=== PATIENT | male | born 1940 | race Caucasian/White ===

== ENCOUNTER 2017-09-10 14:00 | Inpatient (IN) ==
--- NOTE | 2017-09-10 14:11 | Emergency Department Note ---
Disposition Clinical Impression: Hypoxia, Cough, Elevated d-dimer Dyspnea Qualifiers: Dyspnea type: unspecified Qualified Code(s): R06.00 - Dyspnea, unspecified Disposition: Admitted As Inpatient Time of Disposition: 17:39 General Adult HPI - General Chief complaint: ED Shortness of Breath/Dyspnea Stated complaint: Cough Congestion / Diarrhea Time Seen by Provider: 09/10/17 14:10 Source: patient, EMS Mode of arrival: EMS Limitations: no limitations Nursing Notes Reviewed: Yes Vital Signs Reviewed: Yes - History of Present Illness HPI Narrative: Patient is a 77-year-old male with past medical history of dementia, COPD. He wears oxygen at night as needed. Presents today due to cough, shortness of breath. The patient denies any chest pain, nausea, vomiting, fevers, diarrhea, abdominal pain. He does admit to productive sputum. Family members are here and state that he has been requiring more oxygen than usual due to cough and shortness of breath. They deny any previous WA or stent history. Pain Scale: 0 - Related Data Home Medications Medication Instructions Recorded Confirmed Aspirin Enteric Coated [Aspirin EC] 81 mg PO DAILY 01/10/15 09/01/17 Lisinopril [Zestril] 40 mg PO BID 01/10/15 09/01/17 Potassium Chloride 8 meq PO BID 01/10/15 09/01/17 Atorvastatin [Lipitor] 20 mg PO HS 05/14/16 09/01/17 Cyanocobalamin (Vitamin B-12) 1,000 mcg SL DAILY 05/14/16 09/01/17 [Vitamin B-12] Donepezil [Aricept] 10 mg PO HS 05/14/16 09/01/17 Ergocalciferol (VITAMIN D2) 50,000 unit PO QMONTH 05/14/16 09/01/17 [Vitamin D2] Levothyroxine [Synthroid] 50 mcg PO 0630 05/14/16 09/01/17 Linagliptin [Tradjenta] 5 mg PO DAILY 05/14/16 09/01/17 Tiotropium [Spiriva] 18 mcg IH 0700 05/14/16 09/01/17 Furosemide [Lasix] 40 mg PO DAILY 07/30/16 09/01/17 Memantine HCl [Namenda Xr] 14 mg PO HS 07/30/16 09/01/17 Previous Rx's Medication Instructions Recorded D-Methorphan Hb/P-Epd HCl/Bpm 10 ml PO 3-4XD PRN #120 syrup 07/30/16 [Bromfed Dm Cough Syrup] Allergies Allergy/AdvReac Type Severity Reaction Status Date / Time No Known Allergies Allergy Verified 09/01/17 17:18 All systems ED: reviewed and negative except as stated. Constitutional: Denies: fever Cardiovascular: Denies: chest pain Respiratory: Reports: cough. Denies: dyspnea Gastrointestinal: Denies: abdominal pain, nausea, vomiting, diarrhea Genitourinary: Denies: urgency, dysuria Integumentary: Denies: rash Neurological: Denies: headache, weakness, numbness Past Medical History - Past Medical History Attestation: Yes The following information was validated with the patient. Source: patient Medical history: Reports: COPD, dementia, hypertension, thyroid disease Surgical history: Reports: appendectomy, cholecystectomy Psychiatric history: Reports: no psych history, other (His daughter does state that she has hydroxyzine prescription for him at home for anxiety she does not know the dose of it and she states she usually gives him one every evening to help him sleep) - Social History Smoking Status: Never smoker Smokeless Tobacco Status: No Alcohol use: Reports: none Drug use: Reports: none Physical Exam - General Limitations: no limitations General appearance: alert, in no apparent distress - Head Head exam: atraumatic, normocephalic, normal inspection - Eye Eye exam: Present: normal appearance, PERRL, EOMI - ENT ENT exam: normal exam, normal oropharynx, mucous membranes moist - Neck Neck exam: Present: normal inspection, full ROM, trachea midline - Chest Chest inspection: Present: normal inspection, symmetric chest wall rise - Respiratory Respiratory exam: Present: other (Wheezes and decreased aeration of bilateral lower lobes). Absent: respiratory distress, accessory muscle use - Cardiovascular Cardiovascular exam: Present: regular rate, normal rhythm, normal heart sounds - Abdominal Exam Abdominal exam: Present: soft, Non-Tender. Absent: tenderness, distention, guarding, rebound, rigidity - Extremities Exam Extremities exam: Present: normal inspection, full ROM. Absent: tenderness, pedal edema - Neurological Exam Neurological exam: Present: alert, oriented X3, CN II-XII intact. Absent: motor sensory deficit - Psychiatric Psychiatric exam: Present: normal affect, normal mood - Skin Skin exam: Present: warm, dry, intact, normal color Course Course Narrative: On presentation, patient was satting 88% on 2 L nasal cannula. He was increased to 4 L nasal cannula oxygen and was satting in the low 90s. Patient has no increased work of breathing but lung exam shows wheezing bilateral lower lobes. Currently concern for pneumonia versus COPD exacerbation. We will order EKG, chest x-ray, troponin. Patient will likely need to be admitted due to increased oxygen demand. We will give DuoNeb x 3 & Medrol. 17:34 EKG showed no acute ST changes. Troponin negative. Chest x-ray shows pulmonary edema and pneumonia. Patient was given Levaquin. Patient had been placed on BiPAP due to her worsening hypoxia and shortness of breath. ABG shows normal pH and CO2 of 46. I talked with hospitalist and admitted the patient for pneumonia, hypoxia. After admission, D-dimer came back elevated in the 1700. CTA chest ordered to assess for PE. I called and talked with hospitalist again and she states that she will follow up on this test. Chest X-Ray 09/10/17 14:20 IMPRESSION: 1. Interval development of mild interstitial pulmonary edema. 2. New hazy bibasilar airspace opacities likely reflect either atelectasis or edema, though pneumonia cannot be excluded. D/ / 09/10/2017 14:58:19 Cyrus Harris MD / ervin Interpreting Provider: Cyrus Harris MD Vital Signs Temperature 98.3 F 09/10/17 14:02 Pulse Rate 78 09/10/17 14:02 Respiratory Rate 22 09/10/17 14:02 Blood Pressure 102/63 09/10/17 14:02 O2 Sat by Pulse Oximetry 91 09/10/17 14:02 Temperature 98.3 F 09/10/17 14:20 Pulse Rate 78 09/10/17 14:20 Respiratory Rate 20 09/10/17 17:48 Blood Pressure 118/65 09/10/17 17:48 O2 Sat by Pulse Oximetry 93 09/10/17 17:09 Oxygen Delivery Oxygen Delivery Bipap Medical Decision Making - [facility] Narrative Medical decision making narrative: On presentation, patient was satting 88% on 2 L nasal cannula. He was increased to 4 L nasal cannula oxygen and was satting in the low 90s. Patient has no increased work of breathing but lung exam shows wheezing bilateral lower lobes. Currently concern for pneumonia versus COPD exacerbation. We will order EKG, chest x-ray, troponin. Patient will likely need to be admitted due to increased oxygen demand. We will give DuoNeb x 3 & Medrol. 17:34 EKG showed no acute ST changes. Troponin negative. Chest x-ray shows pulmonary edema and pneumonia. Patient was given Levaquin. Patient had been placed on BiPAP due to her worsening hypoxia and shortness of breath. ABG shows normal pH and CO2 of 46. I talked with hospitalist and admitted the patient for pneumonia, hypoxia. After admission, D-dimer came back elevated in the 1700. CTA chest ordered to assess for PE. I called and talked with hospitalist again and she states that she will follow up on this test. - Medical Records Medical records reviewed: Yes I reviewed the patient's medical records. - Lab Data Lab results reviewed: Yes I reviewed the patient's lab results. Result diagrams: 09/10/17 14:20 09/10/17 14:20 Lab Results 09/10/17 09/10/17 09/10/17 Range/Units 14:20 14:20 14:20 WBC 9.8 (4.3-11.1) K/mcL RBC 4.46 (4.19-5.50) M/mcL Hgb 13.1 (12.9-16.9) g/dL Hct 41.0 (37.5-50.1) % MCV 91.9 (83.0-100.0) fL MCH 29.4 (28.0-33.3) pg MCHC 32.0 (31.6-35.5) g/dL RDW 13.2 (11.5-14.5) % Plt Count 246 (140-400) K/mcL MPV 10.5 (9.4-12.4) fL Immature Gran % 0.7 (0-4) % Seg Neutrophils % 64.6 % Lymphocytes % 20.6 % Monocytes % 10.5 % Eosinophils % 2.9 % Basophils % 0.7 % Neutrophils # 6.4 (1.6-8.9) K/mcL Lymphocytes # 2.0 (0.6-4.6) K/mcL Monocytes # 1.0 (0.0-1.3) K/mcL Eosinophils # 0.3 (0.0-0.6) K/mcL Basophils # 0.1 (0.0-0.2) K/mcL D-Dimer (0-500) ng/mLFEU Sample Site ABG pH (7.32-7.45) pH Units ABG pCO2 (35-45) mmHg ABG pO2 (85-104) mmHg ABG HCO3 (21-27) mEq/L ABG Total CO2 (20-26) mEq/L ABG O2 Saturation (95-98) % ABG Base Excess (-2 to 3) mEq/L Domenico Test O2 Delivery Device Inspired O2 (1-15=lpm up18-314=%) Sodium 132 L (136-145) mEq/L Potassium 4.2 (3.5-5.1) mEq/L Chloride 99 (98-107) mEq/L Carbon Dioxide 25 (23-29) mEq/L BUN 25 H (8-23) mg/dL Creatinine 1.28 (0.70-1.30) mg/dL Est GFR ( Amer) > 60 (> 60) Est GFR (Non-Af Amer) 54 L (> 60) BUN/Creatinine Ratio 20 (6-26) Glucose 133 H (70-105) mg/dL Calculated Osmolality 280 (280-300) Lactic Acid (0.5-2.2) mmol/L Calcium 8.8 (8.6-10.3) mg/dL Troponin I 0.03 (< 0.04) ng/mL B-Natriuretic Peptide 43 (Less than 100) pg/mL 09/10/17 09/10/17 09/10/17 Range/Units 15:28 16:11 17:16 WBC (4.3-11.1) K/mcL RBC (4.19-5.50) M/mcL Hgb (12.9-16.9) g/dL Hct (37.5-50.1) % MCV (83.0-100.0) fL MCH (28.0-33.3) pg MCHC (31.6-35.5) g/dL RDW (11.5-14.5) % Plt Count (140-400) K/mcL MPV (9.4-12.4) fL Immature Gran % (0-4) % Seg Neutrophils % % Lymphocytes % % Monocytes % % Eosinophils % % Basophils % % Neutrophils # (1.6-8.9) K/mcL Lymphocytes # (0.6-4.6) K/mcL Monocytes # (0.0-1.3) K/mcL Eosinophils # (0.0-0.6) K/mcL Basophils # (0.0-0.2) K/mcL D-Dimer 1744 H (0-500) ng/mLFEU Sample Site L Radial ABG pH 7.42 (7.32-7.45) pH Units ABG pCO2 46 H (35-45) mmHg ABG pO2 78 L (85-104) mmHg ABG HCO3 29 H (21-27) mEq/L ABG Total CO2 31 H (20-26) mEq/L ABG O2 Saturation 96 (95-98) % ABG Base Excess 4 H (-2 to 3) mEq/L Domenico Test N/A O2 Delivery Device BiPAP Inspired O2 36.0 (1-15=lpm ij23-547=%) Sodium (136-145) mEq/L Potassium (3.5-5.1) mEq/L Chloride (98-107) mEq/L Carbon Dioxide (23-29) mEq/L BUN (8-23) mg/dL Creatinine (0.70-1.30) mg/dL Est GFR ( Amer) (> 60) Est GFR (Non-Af Amer) (> 60) BUN/Creatinine Ratio (6-26) Glucose (70-105) mg/dL Calculated Osmolality (280-300) Lactic Acid 1.4 (0.5-2.2) mmol/L Calcium (8.6-10.3) mg/dL Troponin I (< 0.04) ng/mL B-Natriuretic Peptide (Less than 100) pg/mL - Radiology Data Radiology results reviewed: Yes I reviewed the patient's radiology results. - EKG Data EKG #1 EKG attestation: Yes I reviewed and interpreted this EKG. EKG results narrative: 09/10/2017 at 14:18. Normal sinus rhythm. Rate 77. AK within normal limits. QRS 94. QTC 424. Left axis deviation. No acute ST elevation or depression. S.B.A.R. - S.B.A.R. Situation: Demographics, MOA Background: Presenting Complaint, Relevant PMH, Meds, & Allergies Assessment: Vital Signs, Course and respsone to treatment, Exam Concerns, Patient/Family Expectation, Pertinant Lab Results Recommendation: Barrier(s) to disposition, Recommendation based on pending studies, treatments, or consults S.B.A.R. Report Given to: Dr. Layne, pending CTA that hospitalist will f/u on Attestation Statement - Attestation Attestation: I, Damian Huddleston, examined this patient and my medical decision-making was reviewed with the VETERIN[employer]K SPECIALIST/PA/Advanced Practice Nurse/Resident Physician. I agree with the documented findings, disposition and treatment plan as described except to the extent set forth below. 77-year-old male presents emergency Department with concerns of increased shortness of breath. Family denies recent fevers however they state he has been increasingly weak and fatigued over the past few days. On initial evaluation the patient was hypoxic. The resident, Dr. Olmstead, tried started patient on BiPAP however the patient refuses at that time. In order to keep his sats above 90 we put him on a Ventimask. On reevaluation the patient had become increasingly weak and fatigued. I was concerned about possible early hypercarbia and the patient then agreed to wear BiPAP to support his O2 saturation. Patient has a possible pneumonia on chest x-ray. He started on antibiotics in the emergency department. Patient denies chest pain, had a positive d-dimer and CTA is pending at this time. Patient will be admitted to the hospitalist for further care and evaluation.
[2017-09-10] MEDS ORDERED: Ipratropium/Albuterol Neb 3 ML IH ONE (14:21)
[2017-09-10] MEDS ORDERED: methylPREDNISolone 125 MG/2 ML VIAL IVP ONE (14:21)
[2017-09-10 15:49] LABS: Basophils # 0.1 K/mcL (0.0-0.2); Basophils % 0.7 %; Eosinophils # 0.3 K/mcL (0.0-0.6); Eosinophils % 2.9 %; Hemoglobin 13.1 g/dL (12.9-16.9); Immature Granulocytes % 0.7 % (0-4); Lymphocytes % 20.6 %; Mean Corpuscular Hemoglobin 29.4 pg (28.0-33.3); Mean Corpuscular Volume 91.9 fL (83.0-100.0); Mean Platelet Volume 10.5 fL (9.4-12.4); Monocytes % 10.5 %; Neutrophils # 6.4 K/mcL (1.6-8.9); Platelet Count 246 K/mcL (140-400); Red Blood Count 4.46 M/mcL (4.19-5.50); Red Cell Distribution Width 13.2 % (11.5-14.5); Segmented Neutrophils % 64.6 %
[2017-09-10] MEDS ORDERED: Levofloxacin 750 MG/150 ML 750 MG/150 ML BAG IVPB ONE (16:03)
[2017-09-10 16:11] LABS: BUN/Creatinine Ratio 20 (6-26); Blood Urea Nitrogen 25 mg/dL (8-23); Calcium 8.8 mg/dL (8.6-10.3); Carbon Dioxide 25 mEq/L (23-29); Chloride 99 mEq/L (98-107); Glucose 133 mg/dL (70-105); Osmolality,Calculated 280 (280-300); Potassium 4.2 mEq/L (3.5-5.1); Sodium 132 mEq/L (136-145); eGFR For African Americans > 60 (> 60); eGFR For Non-African Americans 54 (> 60)
[2017-09-10 16:29] LABS: Troponin I 0.03 ng/mL (< 0.04)
[2017-09-10] MEDS ORDERED: *HR* LORazepam 2 MG/ML VIAL IVP ONE (16:45)
[2017-09-10 17:25] LABS: ABG Base Excess 4 mEq/L (-2 to 3); ABG HCO3 29 mEq/L (21-27); ABG Oxygen Saturation 96 % (95-98); ABG PCO2 46 mmHg (35-45); ABG PH 7.42 pH Units (7.32-7.45); ABG PO2 78 mmHg (85-104); ABG TCO2 31 mEq/L (20-26)
--- NOTE | 2017-09-10 17:53 | Internal Med History&Physical ---
Date of Encounter: 09/10/17 Time of Encounter: 17:49 Internal Medicine - H&P: HPI Chief complaint: SOB Admitted From: Home Plans for Post Hospital Care: Home History of present illness: Mr. Valera is a 77 year old male who has history of dementia morbid obesity diabetes hypertension hyperlipidemia heart aneurysm hypothyroidism present to emergency room for 2 days of shortness of breasts and the cough. Patient lives with her daughter at home and wears 2 L nasal cannula at night and as needed. He developed a dry cough 2 days ago increased shortness of breath over last 2- 3 days. In the emergency room chest x-ray shows chest congestion and a possible pneumonia. he was hypoxic requiring 4 L nasal cannula and the BiPAP. I discussed the code status with her daughter she wants to be full code. D- dimer is elevated 1744, pending CT angio. Patient is going to be admitted for acute on chronic respiratory failure, pneumonia possible COPD exacerbation , pulmonary edema. will conitnue llevaquin, BIPAP, will start iV lasix Past Med Surg Social Fam HX - Past Medical History Medical history: COPD, dementia, hypertension, thyroid disease Psychiatric history: no psych history, other (His daughter does state that she has hydroxyzine prescription for him at home for anxiety she does not know the dose of it and she states she usually gives him one every evening to help him sleep) - Past Surgical History Surgical History: appendectomy, cholecystectomy - Social History Smoking Status: Never smoker Smokeless Tobacco Status: No Alcohol use: none Drug use: none Internal Medicine - H&P: Meds Aspirin Enteric Coated [Aspirin EC] 81 mg PO DAILY 01/10/15 [History] Lisinopril [Zestril] 40 mg PO BID 01/10/15 [History] Potassium Chloride 8 meq PO BID 01/10/15 [History] Atorvastatin [Lipitor] 20 mg PO HS 05/14/16 [History] Cyanocobalamin (Vitamin B-12) [Vitamin B-12] 1,000 mcg SL DAILY 05/14/16 [ History] Donepezil [Aricept] 10 mg PO HS 05/14/16 [History] Ergocalciferol (VITAMIN D2) [Vitamin D2] 50,000 unit PO QMONTH 05/14/16 [History ] Levothyroxine [Synthroid] 50 mcg PO 0630 05/14/16 [History] Linagliptin [Tradjenta] 5 mg PO DAILY 05/14/16 [History] Tiotropium [Spiriva] 18 mcg IH 0700 05/14/16 [History] D-Methorphan Hb/P-Epd HCl/Bpm [Bromfed Dm Cough Syrup] 10 ml PO 3-4XD PRN #120 syrup 07/30/16 [Rx] Furosemide [Lasix] 40 mg PO DAILY 07/30/16 [History] Memantine HCl [Namenda Xr] 14 mg PO HS 07/30/16 [History] 3 Allergy/AdvReac Type Severity Reaction Status Date / Time No Known Allergies Allergy Verified 09/01/17 17:18 ROS unobtainable: due to mental status All Systems PM: A 10-system review of systems was performed and is negative for pertinent findings except as documented above in the HPI. reviewed with his daughter - Constitutional Vitals: Temp Pulse Resp BP Pulse Ox 98.3 F 78 24 134/81 93 09/10/17 14:20 09/10/17 14:20 09/10/17 17:09 09/10/17 17:09 09/10/17 17:09 General appearance: Present: A&O X 1 Exam: CONSTITUTIONAL: Patient appears as an age appropriate male well developed, in no acute distress. EYES Clear sclerae, bilateral pupils are equal, reactive to light and accommodation. Extraocular movements are intact RESPIRATORY: No accessory muscle use, bilateral clear to auscultation, no wheezing, no crackles/rales. CARDIOVASCULAR: Regular heart rate, normal S1 and S2, no murmurs GASTROINTESTINAL: bowel sounds present, soft, no tenderness. No hepatosplenomegaly. No bilateral CVA tenderness MUSCULOSKELETAL: Joints in normal range of motion, no clubbing, no edema, no cyanosis. Bilateral peripheral pulses 2+ LYMPHATIC no lymphadenopathy in neck, groin and axilla bilaterally, no thyromegaly. NEUROLOGIC: CN II to XII are grossly intact, no focal neurological deficit. Deep tendon reflexes 2+ bilaterally. Normal light touch sensation to upper and lower extremity PSYCHIATRIC: Oriented x1, with good insight, mood is euthymic. No hallucinations or delusions. SKIN: Skin warm and dry, no rashes, no open wound. Internal Med - H&P Results - Labs CBC & Chem 7: 05/28/18 14:20 09/10/17 14:20 - ABG Interpretation ABG results: 09/10/17 17:16 ABG pH 7.42 ABG pCO2 46 H ABG pO2 78 L ABG HCO3 29 H ABG Total CO2 31 H ABG O2 Saturation 96 ABG Base Excess 4 H - Assessment and plan (1) Respiratory failure with hypoxia Current Visit: Yes Status: Acute Assessment and plan: Acute on chronic hypoxic respiratory failure from pneumonia pulmonary edema. We will continue BiPAP IV Lasix antibiotics Qualifiers: Chronicity: acute on chronic Qualified Code(s): J96.21 - Acute and chronic respiratory failure with hypoxia (2) Pneumonia Current Visit: Yes Status: Acute Assessment and plan: Patient is from home will continue Levaquin, check urine legionella and strep Qualifiers: Pneumonia type: due to unspecified organism Laterality: bilateral Lung location: unspecified part of lung Qualified Code(s): J18.9 - Pneumonia, unspecified organism (3) Morbid obesity Current Visit: Yes Status: Chronic Assessment and plan: orbid: Obese, possible sleep apnea (4) Diabetes mellitus Current Visit: Yes Status: Acute Assessment and plan: on insulin sliding scale Qualifiers: Diabetes mellitus type: type 2 Diabetes mellitus half-way insulin use: without vermin exterminator use Diabetes mellitus complication status: without complication Qualified Code(s): E11.9 - Type 2 diabetes mellitus without complications (5) Dementia Current Visit: Yes Status: Chronic Qualifiers: Dementia type: unspecified type Dementia behavioral disturbance: without behavioral disturbance Qualified Code(s): F03.90 - Unspecified dementia without behavioral disturbance (6) Elevated d-dimer Current Visit: Yes Status: Acute Assessment and plan: Pain the CT angio of chest - Time Spent With Patient Total time spent is greater than 50% in coordination of care (as documented) at patient's floor/unit and/or counseling patient: Greater than 35 minutes
[2017-09-10] MEDS ORDERED: *HR* Dextrose 50 % in Water (Syg) 50 ML SYRINGE IVP PRN (18:00)
[2017-09-10] MEDS ORDERED: Dextrose Gel 15 GM/37.5 ML TUBE PO PRN ×2 (18:00)
[2017-09-10] MEDS ORDERED: D5% in Water 1,000 ML IVC PRN (18:00)
[2017-09-10] MEDS ORDERED: Naloxone 0.4 MG/ML INJ IVP PRN (18:01)
[2017-09-10] MEDS: Furosemide 40 MG/4 ML VIAL IVP SCH (22:13)
[2017-09-11 00:49] LABS: Basophils % 0.1 %; Eosinophils % 0.1 %; Hematocrit 40.6 % (37.5-50.1); Hemoglobin 13.5 g/dL (12.9-16.9); Immature Granulocytes % 0.8 % (0-4); Lymphocytes # 0.6 K/mcL (0.6-4.6); Lymphocytes % 6.1 %; Mean Corpuscular HGB Conc 33.3 g/dL (31.6-35.5); Mean Corpuscular Hemoglobin 30.5 pg (28.0-33.3); Mean Corpuscular Volume 91.6 fL (83.0-100.0); Mean Platelet Volume 10.4 fL (9.4-12.4); Monocytes # 0.1 K/mcL (0.0-1.3); Monocytes % 0.9 %; Platelet Count 243 K/mcL (140-400); Red Blood Count 4.43 M/mcL (4.19-5.50); Red Cell Distribution Width 12.9 % (11.5-14.5)
[2017-09-11] MEDS: Insulin LISPRO 300 UNITS/3 ML VIAL SQ SCH ×5 (01:14→19:54)
[2017-09-11] MEDS: Lisinopril 20 MG TABLET PO SCH ×2 (01:15→09:51)
[2017-09-11] MEDS: *HR* Heparin 5,000 UNIT/ML VIAL SQ SCH ×2 (05:26→17:03)
[2017-09-11 06:57] LABS: Troponin I < 0.03 ng/mL (< 0.04)
[2017-09-11] MEDS ORDERED: Tiotropium 18 MCG inhalation IH SCH (07:00)
[2017-09-11] MEDS ORDERED: Ipratropium/Albuterol Neb 3 ML IH PRN (07:42)
[2017-09-11 08:06] LABS: BUN/Creatinine Ratio 24 (6-26); Blood Urea Nitrogen 30 mg/dL (8-23); Calcium 8.6 mg/dL (8.6-10.3); Carbon Dioxide 25 mEq/L (23-29); Chloride 99 mEq/L (98-107); Glucose 184 mg/dL (70-105); Osmolality,Calculated 289 (280-300); Sodium 134 mEq/L (136-145); eGFR For African Americans > 60 (> 60); eGFR For Non-African Americans 56 (> 60)
[2017-09-11 08:10] LABS: Estimated Average Glucose 177 mg/dl; Hemoglobin A1C 7.8 %
[2017-09-11] MEDS: Aspirin Enteric Coated 81 MG Tablet PO SCH (09:51)
[2017-09-11] MEDS: Levofloxacin 750 MG/150 ML 750 MG/150 ML BAG IVPB SCH (09:54)
[2017-09-11] MEDS: Furosemide 40 MG/4 ML VIAL IVP SCH (09:54)
[2017-09-11] MEDS ORDERED: Albuterol 2.5 MG/3 ML NEBULIZER IH PRN (16:12)
--- NOTE | 2017-09-11 16:19 | Internal Med Progress Note ---
Date of Encounter: 09/11/17 Time of Encounter: 16:17 - Assessment and plan (1) Respiratory failure with hypoxia Current Visit: Yes Status: Acute Assessment and plan: RT consulted. Will try to wean off BiPAP today. Continue supplemental oxygen. Start duonebs scheduled Q6H and albuterol nebs Q4H PRN SOB. Start mucinex and claritin. Start mucomyst inhaled Q6H and chest PT Q6H. Turn, cough, deep breath. Up to chair and ambulate TID with assistance. Continue incentive spirometer. Continue levaquin for pneumonia as per below. Continue lasix for pulmonary edema as per below. Monitor closely. Repeat labwork in AM. Qualifiers: Chronicity: acute on chronic Qualified Code(s): J96.21 - Acute and chronic respiratory failure with hypoxia (2) Pneumonia Current Visit: Yes Status: Acute Assessment and plan: Continue levaquin. Respiratory support as per above. Qualifiers: Pneumonia type: due to unspecified organism Laterality: bilateral Lung location: unspecified part of lung Qualified Code(s): J18.9 - Pneumonia, unspecified organism (3) Pulmonary edema Current Visit: Yes Status: Acute Assessment and plan: Continue lasix. Respiratory support as per above. Qualifiers: Chronicity: acute Qualified Code(s): J81.0 - Acute pulmonary edema (4) COPD (chronic obstructive pulmonary disease) Current Visit: Yes Status: Chronic Assessment and plan: Respiratory support as per above. Nebulizer treatments added today. No need for steroids as not in acute exacerbation; respiratory failure likely secondary to pneumonia and pulmonary edema. Qualifiers: COPD type: unspecified COPD Qualified Code(s): J44.9 - Chronic obstructive pulmonary disease, unspecified (5) Diabetes mellitus Current Visit: Yes Status: Chronic Assessment and plan: Continue accuchecks and SSI QID AC/HS. Start diabetic/cardiac diet after off BiPAP. Qualifiers: Diabetes mellitus type: type 2 Diabetes mellitus prison insulin use: without prison use Diabetes mellitus complication status: without complication Qualified Code(s): E11.9 - Type 2 diabetes mellitus without complications (6) Dementia Current Visit: Yes Status: Chronic Assessment and plan: Continue home medications. Qualifiers: Dementia type: unspecified type Dementia behavioral disturbance: without behavioral disturbance Qualified Code(s): F03.90 - Unspecified dementia without behavioral disturbance (7) Morbid obesity Current Visit: Yes Status: Chronic Assessment and plan: Counselled on lifestyle modifications. (8) DVT prophylaxis Current Visit: Yes Status: Acute Assessment and plan: Continue SQ heparin. - Time Spent With Patient Total time spent is greater than 50% in coordination of care (as documented) at patient's floor/unit and/or counseling patient: - Subjective Interval history: Patient had no acute events overnight. Nursing staff reports patient sleeping most of day on BiPAP. Patient is awake in room when I saw him. He is wearing BiPAP. He is conversing appropriately. He wants to know when he will go home. He wants to eat. Will get RT to try to wean him of BiPAP and get him diet. He denies fever, chills, chest pain, SOB, nausea, or vomiting. He has no complaints at this time. - Constitutional Vitals: Temp Pulse Resp BP Pulse Ox 98.3 F 74 14 127/65 93 09/11/17 16:07 09/11/17 16:07 09/11/17 16:07 09/11/17 16:07 09/11/17 16:07 General appearance: Present: cooperative, A&O X 2, morbidly obese, pleasant, no acute distress, answers questions appropriately - Respiratory Respiratory exam: Absent: accessory muscle use, rales, rhonchi, wheezes Additional comments: Coarse breath sounds bilaterally, mildly labored WOB - Cardiovascular Cardiovascular exam: Present: RRR, +S1, +S2. Absent: diastolic murmur, gallop, rubs, systolic murmur Additional comments: No BLE edema - GI/Abdominal GI/Abdominal exam: Present: normal bowel sounds, soft. Absent: distended, hepatomegaly, mass, splenomegaly, tenderness - Psychiatric Psychiatric exam: Present: normal affect, normal mood. Absent: agitated, anxious, depressed - Skin Skin exam: Present: dry, intact, warm. Absent: cyanosis, rash Internal Medicine: Result - Labs CBC & Chem 7: 09/11/17 00:39 09/11/17 06:08 Labs: Short CBC 09/11/17 Range/Units 00:39 WBC 9.8 (4.3-11.1) K/mcL Hgb 13.5 (12.9-16.9) g/dL Hct 40.6 (37.5-50.1) % Plt Count 243 (140-400) K/mcL Neutrophils # 9.0 H (1.6-8.9) K/mcL BMP 09/11/17 06:08 Sodium 134 L Potassium 5.0 Chloride 99 Carbon Dioxide 25 BUN 30 H Creatinine 1.25 Glucose 184 H Calcium 8.6 Cardiac Enzymes 09/10/17 09/11/17 09/11/17 Range/Units 18:33 00:39 06:08 Troponin I < 0.03 < 0.03 < 0.03 (< 0.04) ng/mL - ABG Interpretation ABG results: ABG ABG pH 7.42 pH Units (7.32-7.45) 09/10/17 17:16 ABG pCO2 46 mmHg (35-45) H 09/10/17 17:16 ABG pO2 78 mmHg (85-104) L 09/10/17 17:16 ABG O2 Saturation 96 % (95-98) 09/10/17 17:16 PT/INR, D-dimer D-Dimer 1744 ng/mLFEU (0-500) H 09/10/17 16:11 Consult Discharge Plan - Plan Referrals: Pranav Abdullahi, REHABILITATION INSPECTOR [Primary Care Provider] - (Family will have to call and make patients appointment per Dr. Garcia Office)
[2017-09-11] MEDS: Loratadine 10 MG TABLET PO SCH (17:01)
[2017-09-11] MEDS: Ipratropium/Albuterol Neb 3 ML IH SCH ×2 (20:04→22:30)
[2017-09-11] MEDS ORDERED: hydrOXYzine pamoate 25 MG CAPSULE PO ONE (22:27)
[2017-09-11] MEDS: Acetylcysteine 10% 2 ML INHSOL IH SCH (22:30)
[2017-09-12] MEDS: Ipratropium/Albuterol Neb 3 ML IH SCH ×4 (04:28→22:08)
[2017-09-12] MEDS: Acetylcysteine 10% 2 ML INHSOL IH SCH ×4 (04:28→22:08)
[2017-09-12 05:45] LABS: Basophils % 0.7 %; Eosinophils % 1.3 %; Hematocrit 40.3 % (37.5-50.1); Hemoglobin 12.9 g/dL (12.9-16.9); Immature Granulocytes % 1.3 % (0-4); Lymphocytes % 18.4 %; Mean Corpuscular Hemoglobin 29.1 pg (28.0-33.3); Mean Platelet Volume 10.3 fL (9.4-12.4); Monocytes % 7.3 %; Platelet Count 245 K/mcL (140-400); Red Blood Count 4.43 M/mcL (4.19-5.50)
[2017-09-12 05:46] LABS: Basophils # 0.1 K/mcL (0.0-0.2); Eosinophils # 0.1 K/mcL (0.0-0.6); Lymphocytes # 1.8 K/mcL (0.6-4.6); Monocytes # 0.7 K/mcL (0.0-1.3); Neutrophils # 6.8 K/mcL (1.6-8.9)
[2017-09-12] MEDS: *HR* Heparin 5,000 UNIT/ML VIAL SQ SCH ×2 (05:46→17:18)
[2017-09-12 06:03] LABS: BUN/Creatinine Ratio 27 (6-26); Blood Urea Nitrogen 33 mg/dL (8-23); Calcium 8.6 mg/dL (8.6-10.3); Carbon Dioxide 28 mEq/L (23-29); Chloride 102 mEq/L (98-107); Glucose 141 mg/dL (70-105); Osmolality,Calculated 296 (280-300); Sodium 138 mEq/L (136-145); eGFR For African Americans > 60 (> 60); eGFR For Non-African Americans 57 (> 60)
[2017-09-12] MEDS: Insulin LISPRO 300 UNITS/3 ML VIAL SQ SCH ×4 (07:27→21:12)
--- NOTE | 2017-09-12 07:53 | Electrocardiograph Report ---
[place] [id number] Test Date: 2017-09-10 Pat Name: Brodie Valera Department: 103 Room: 2N02 Gender: M [employer]: NEMO : 1940 Requested By: Alen Olmstead Order Number: [id number] Reading MD: Frandy Gaines Measurements Intervals [place] Rate: 77 P: TN: 0 QRS: -44 QRSD: 94 T: 58 QT: 392 QTc: 424 Interpretive Statements SINUS RHYTHM WITH A FIRST DEGREE AV BLOCK MARKED LEFT AXIS DEVIATION LOW QRS VOLTAGE IN PRECORDIAL LEADS NONSPECIFIC T-WAVE ABNORMALITY Electronically Signed On 09-12-2017 7:51:44 EDT by Frandy Gaines
[2017-09-12] MEDS: Aspirin Enteric Coated 81 MG Tablet PO SCH (08:42)
[2017-09-12] MEDS: Loratadine 10 MG TABLET PO SCH (08:42)
[2017-09-12] MEDS: Furosemide 40 MG/4 ML VIAL IVP SCH (08:42)
[2017-09-12] MEDS: Levofloxacin 750 MG/150 ML 750 MG/150 ML BAG IVPB SCH (08:42)
--- NOTE | 2017-09-12 16:49 | Internal Med Progress Note ---
Date of Encounter: 09/12/17 Time of Encounter: 16:46 - Assessment and plan (1) Respiratory failure with hypoxia Current Visit: Yes Status: Acute Assessment and plan: Improving. RT consulted. Now on 5L NC. Continue to wean supplemental oxygen to home 2L NC. Continue duonebs scheduled Q6H and albuterol nebs Q4H PRN SOB. Continue mucinex and claritin. Continue mucomyst inhaled Q6H and chest PT Q6H. Turn, cough, deep breath. Up to chair and ambulate TID with assistance. Continue incentive spirometer. Continue levaquin for pneumonia as per below. Continue lasix for pulmonary edema as per below. Monitor closely. Repeat labwork in AM. Qualifiers: Chronicity: acute on chronic Qualified Code(s): J96.21 - Acute and chronic respiratory failure with hypoxia (2) Pneumonia Current Visit: Yes Status: Acute Assessment and plan: Continue levaquin. Respiratory support as per above. Qualifiers: Pneumonia type: due to unspecified organism Laterality: bilateral Lung location: unspecified part of lung Qualified Code(s): J18.9 - Pneumonia, unspecified organism (3) Pulmonary edema Current Visit: Yes Status: Acute Assessment and plan: Continue lasix. Respiratory support as per above. Qualifiers: Chronicity: acute Qualified Code(s): J81.0 - Acute pulmonary edema (4) COPD (chronic obstructive pulmonary disease) Current Visit: Yes Status: Chronic Assessment and plan: Respiratory support as per above. Continue nebulizer treatments. No need for steroids as not in acute exacerbation; respiratory failure likely secondary to pneumonia and pulmonary edema. Qualifiers: COPD type: unspecified COPD Qualified Code(s): J44.9 - Chronic obstructive pulmonary disease, unspecified (5) Diabetes mellitus Current Visit: Yes Status: Chronic Assessment and plan: Continue accuchecks and SSI QID AC/HS. Continue diabetic/cardiac diet. Qualifiers: Diabetes mellitus type: type 2 Diabetes mellitus intermediate school teacher insulin use: without intermediate school teacher use Diabetes mellitus complication status: without complication Qualified Code(s): E11.9 - Type 2 diabetes mellitus without complications (6) Dementia Current Visit: Yes Status: Chronic Assessment and plan: Continue home medications. Qualifiers: Dementia type: unspecified type Dementia behavioral disturbance: without behavioral disturbance Qualified Code(s): F03.90 - Unspecified dementia without behavioral disturbance (7) Morbid obesity Current Visit: Yes Status: Chronic Assessment and plan: Counselled on lifestyle modifications. (8) DVT prophylaxis Current Visit: Yes Status: Acute Assessment and plan: Continue SQ heparin. - Time Spent With Patient Total time spent is greater than 50% in coordination of care (as documented) at patient's floor/unit and/or counseling patient: less than 15 minutes - Subjective Interval history: Patient had no acute events overnight. Patient more awake and communicative today. He is now down to 5L NC without need for BiPAP. He denies fever, chills , chest pain, SOB, nausea, or vomiting. He has no complaints at this time. - Constitutional Vitals: Temp Pulse Resp BP Pulse Ox 98.0 F 84 18 127/66 90 09/12/17 16:22 09/12/17 16:22 09/12/17 16:22 09/12/17 16:22 09/12/17 16:22 General appearance: Present: cooperative, A&O X 3, morbidly obese, pleasant, no acute distress, answers questions appropriately - Respiratory Respiratory exam: Absent: accessory muscle use, rales, rhonchi, wheezes Additional comments: Coarse breath sounds bilaterally with decreased breath sounds at bilateral lung bases, normal WOB - Cardiovascular Cardiovascular exam: Present: RRR, +S1, +S2. Absent: diastolic murmur, gallop, rubs, systolic murmur Additional comments: No BLE edema - GI/Abdominal GI/Abdominal exam: Present: normal bowel sounds, soft. Absent: distended, hepatomegaly, mass, splenomegaly, tenderness - Psychiatric Psychiatric exam: Present: normal affect, normal mood. Absent: agitated, anxious, depressed - Skin Skin exam: Present: dry, intact, warm. Absent: cyanosis, rash Internal Medicine: Result - Labs CBC & Chem 7: 09/12/17 05:12 09/12/17 05:12 Labs: Short CBC 09/12/17 Range/Units 05:12 WBC 9.6 (4.3-11.1) K/mcL Hgb 12.9 (12.9-16.9) g/dL Hct 40.3 (37.5-50.1) % Plt Count 245 (140-400) K/mcL Neutrophils # 6.8 (1.6-8.9) K/mcL BMP 09/12/17 05:12 Sodium 138 Potassium 4.0 Chloride 102 Carbon Dioxide 28 BUN 33 H Creatinine 1.22 Glucose 141 H Calcium 8.6 - ABG Interpretation ABG results: ABG ABG pH 7.42 pH Units (7.32-7.45) 09/10/17 17:16 ABG pCO2 46 mmHg (35-45) H 09/10/17 17:16 ABG pO2 78 mmHg (85-104) L 09/10/17 17:16 ABG O2 Saturation 96 % (95-98) 09/10/17 17:16 PT/INR, D-dimer D-Dimer 1744 ng/mLFEU (0-500) H 09/10/17 16:11 Consult Discharge Plan - Plan Referrals: Pranav Abdullahi, COMPRESSOR MECHANIC BUS [Primary Care Provider] - (Family will have to call and make patients appointment per Dr. Garcia Office)
[2017-09-13] MEDS: Ipratropium/Albuterol Neb 3 ML IH SCH ×4 (04:06→21:48)
[2017-09-13] MEDS: Acetylcysteine 10% 2 ML INHSOL IH SCH ×4 (04:06→21:48)
[2017-09-13 04:22] LABS: Basophils # 0.1 K/mcL (0.0-0.2); Basophils % 1.1 %; Eosinophils # 0.3 K/mcL (0.0-0.6); Eosinophils % 3.4 %; Hematocrit 41.3 % (37.5-50.1); Hemoglobin 13.3 g/dL (12.9-16.9); Immature Granulocytes % 1.3 % (0-4); Lymphocytes # 1.7 K/mcL (0.6-4.6); Lymphocytes % 21.2 %; Mean Corpuscular HGB Conc 32.2 g/dL (31.6-35.5); Mean Corpuscular Hemoglobin 29.2 pg (28.0-33.3); Mean Corpuscular Volume 90.6 fL (83.0-100.0); Mean Platelet Volume 10.2 fL (9.4-12.4); Monocytes # 0.6 K/mcL (0.0-1.3); Monocytes % 7.3 %; Neutrophils # 5.4 K/mcL (1.6-8.9); Platelet Count 235 K/mcL (140-400); Red Blood Count 4.56 M/mcL (4.19-5.50); Segmented Neutrophils % 65.7 %
[2017-09-13 04:30] LABS: ABG Base Excess 6 mEq/L (-2 to 3); ABG HCO3 33 mEq/L (21-27); ABG Oxygen Saturation 91 % (95-98); ABG PCO2 52 mmHg (35-45); ABG PH 7.41 pH Units (7.32-7.45); ABG PO2 62 mmHg (85-104); ABG TCO2 34 mEq/L (20-26)
[2017-09-13 04:40] LABS: BUN/Creatinine Ratio 27 (6-26); Blood Urea Nitrogen 30 mg/dL (8-23); Calcium 8.9 mg/dL (8.6-10.3); Carbon Dioxide 27 mEq/L (23-29); Chloride 100 mEq/L (98-107); Glucose 133 mg/dL (70-105); Osmolality,Calculated 290 (280-300); Potassium 4.1 mEq/L (3.5-5.1); Sodium 136 mEq/L (136-145); eGFR For African Americans > 60 (> 60); eGFR For Non-African Americans > 60 (> 60)
[2017-09-13] MEDS: *HR* Heparin 5,000 UNIT/ML VIAL SQ SCH ×2 (05:30→19:14)
[2017-09-13] MEDS: Insulin LISPRO 300 UNITS/3 ML VIAL SQ SCH ×4 (07:30→21:09)
[2017-09-13] MEDS: Furosemide 40 MG/4 ML VIAL IVP SCH (07:40)
[2017-09-13] MEDS: Loratadine 10 MG TABLET PO SCH (07:41)
[2017-09-13] MEDS: Aspirin Enteric Coated 81 MG Tablet PO SCH (07:41)
[2017-09-13] MEDS: Levofloxacin 750 MG/150 ML 750 MG/150 ML BAG IVPB SCH (08:49)
--- NOTE | 2017-09-13 16:08 | Internal Med Progress Note ---
Date of Encounter: 09/13/17 Time of Encounter: 16:05 - Assessment and plan (1) Respiratory failure with hypoxia Current Visit: Yes Status: Acute Assessment and plan: Improving. RT consulted. Now on 3L NC. Continue to wean supplemental oxygen to home 2L NC. Continue duonebs scheduled Q6H and albuterol nebs Q4H PRN SOB. Continue mucinex and claritin. Continue mucomyst inhaled Q6H and chest PT Q6H. Turn, cough, deep breath. Up to chair and ambulate TID with assistance. Continue incentive spirometer. Continue levaquin for pneumonia as per below; converted to PO today. Continue lasix for pulmonary edema as per below; converted to home PO dose today. Monitor closely. Repeat labwork in AM. Qualifiers: Chronicity: acute on chronic Qualified Code(s): J96.21 - Acute and chronic respiratory failure with hypoxia (2) Pneumonia Current Visit: Yes Status: Acute Assessment and plan: Continue levaquin; converted to PO today. Respiratory support as per above. Qualifiers: Pneumonia type: due to unspecified organism Laterality: bilateral Lung location: unspecified part of lung Qualified Code(s): J18.9 - Pneumonia, unspecified organism (3) Pulmonary edema Current Visit: Yes Status: Acute Assessment and plan: Continue lasix; converted to home PO dose today. Respiratory support as per above. Qualifiers: Chronicity: acute Qualified Code(s): J81.0 - Acute pulmonary edema (4) COPD (chronic obstructive pulmonary disease) Current Visit: Yes Status: Chronic Assessment and plan: Respiratory support as per above. Continue nebulizer treatments. No need for steroids as not in acute exacerbation; respiratory failure likely secondary to pneumonia and pulmonary edema. Qualifiers: COPD type: unspecified COPD Qualified Code(s): J44.9 - Chronic obstructive pulmonary disease, unspecified (5) Diabetes mellitus Current Visit: Yes Status: Chronic Assessment and plan: Continue accuchecks and SSI QID AC/HS. Continue diabetic/cardiac diet. Qualifiers: Diabetes mellitus type: type 2 Diabetes mellitus watermelon inspector insulin use: without fdc use Diabetes mellitus complication status: without complication Qualified Code(s): E11.9 - Type 2 diabetes mellitus without complications (6) Dementia Current Visit: Yes Status: Chronic Assessment and plan: Continue home medications. Qualifiers: Dementia type: unspecified type Dementia behavioral disturbance: without behavioral disturbance Qualified Code(s): F03.90 - Unspecified dementia without behavioral disturbance (7) Morbid obesity Current Visit: Yes Status: Chronic Assessment and plan: Counselled on lifestyle modifications. (8) DVT prophylaxis Current Visit: Yes Status: Acute Assessment and plan: Continue SQ heparin. - Time Spent With Patient Total time spent is greater than 50% in coordination of care (as documented) at patient's floor/unit and/or counseling patient: less than 15 minutes - Subjective Interval history: Patient had no acute events overnight. Patient getting breathing treatment at this time. He states that he is doing well and wants to go home. Nursing staff reports that they have been able to wean him to 3L NC. He denies fever, chills, chest pain, SOB, nausea, or vomiting. He has no complaints at this time. - Constitutional Vitals: Temp Pulse Resp BP Pulse Ox 98.7 F 110 18 106/59 90 09/13/17 11:40 09/13/17 11:40 09/13/17 11:40 09/13/17 11:40 09/13/17 11:40 General appearance: Present: cooperative, A&O X 3, morbidly obese, pleasant, no acute distress, answers questions appropriately - Respiratory Respiratory exam: Present: CTAB. Absent: accessory muscle use, rales, rhonchi, wheezes Additional comments: Normal WOB - Cardiovascular Cardiovascular exam: Present: RRR, +S1, +S2. Absent: diastolic murmur, gallop, rubs, systolic murmur Additional comments: No BLE edema - GI/Abdominal GI/Abdominal exam: Present: normal bowel sounds, soft. Absent: distended, hepatomegaly, mass, splenomegaly, tenderness - Psychiatric Psychiatric exam: Present: normal affect, normal mood. Absent: agitated, anxious, depressed - Skin Skin exam: Present: dry, intact, warm. Absent: cyanosis, rash Internal Medicine: Result - Labs CBC & Chem 7: 09/13/17 04:02 09/13/17 04:02 Labs: Short CBC 09/13/17 Range/Units 04:02 WBC 8.2 (4.3-11.1) K/mcL Hgb 13.3 (12.9-16.9) g/dL Hct 41.3 (37.5-50.1) % Plt Count 235 (140-400) K/mcL Neutrophils # 5.4 (1.6-8.9) K/mcL BMP 09/13/17 04:02 Sodium 136 Potassium 4.1 Chloride 100 Carbon Dioxide 27 BUN 30 H Creatinine 1.11 Glucose 133 H Calcium 8.9 - ABG Interpretation ABG results: ABG ABG pH 7.41 pH Units (7.32-7.45) 09/13/17 04:28 ABG pCO2 52 mmHg (35-45) H 09/13/17 04:28 ABG pO2 62 mmHg (85-104) L 09/13/17 04:28 ABG O2 Saturation 91 % (95-98) L 09/13/17 04:28 PT/INR, D-dimer D-Dimer 1744 ng/mLFEU (0-500) H 09/10/17 16:11 Consult Discharge Plan - Plan Referrals: Pranav Abdullahi, UTILITY BAGGER [Primary Care Provider] - (Family will have to call and make patients appointment per Dr. Garcia Office)
[2017-09-14] MEDS: Acetylcysteine 10% 2 ML INHSOL IH SCH ×2 (03:38→10:57)
[2017-09-14] MEDS: Ipratropium/Albuterol Neb 3 ML IH SCH ×2 (03:38→10:57)
[2017-09-14 05:02] LABS: Basophils # 0.1 K/mcL (0.0-0.2); Basophils % 0.8 %; Eosinophils # 0.4 K/mcL (0.0-0.6); Eosinophils % 4.2 %; Hematocrit 42.6 % (37.5-50.1); Hemoglobin 13.7 g/dL (12.9-16.9); Immature Granulocytes % 1.3 % (0-4); Lymphocytes # 1.6 K/mcL (0.6-4.6); Lymphocytes % 19.1 %; Mean Corpuscular HGB Conc 32.2 g/dL (31.6-35.5); Mean Corpuscular Hemoglobin 29.2 pg (28.0-33.3); Mean Corpuscular Volume 90.8 fL (83.0-100.0); Mean Platelet Volume 10.1 fL (9.4-12.4); Monocytes # 0.5 K/mcL (0.0-1.3); Monocytes % 6.3 %; Neutrophils # 5.7 K/mcL (1.6-8.9); Platelet Count 264 K/mcL (140-400); Red Blood Count 4.69 M/mcL (4.19-5.50); Red Cell Distribution Width 13.2 % (11.5-14.5); Segmented Neutrophils % 68.3 %
[2017-09-14 05:20] LABS: BUN/Creatinine Ratio 23 (6-26); Blood Urea Nitrogen 29 mg/dL (8-23); Calcium 9.1 mg/dL (8.6-10.3); Carbon Dioxide 29 mEq/L (23-29); Chloride 101 mEq/L (98-107); Glucose 161 mg/dL (70-105); Osmolality,Calculated 297 (280-300); Potassium 4.2 mEq/L (3.5-5.1); Sodium 139 mEq/L (136-145); eGFR For African Americans > 60 (> 60); eGFR For Non-African Americans 56 (> 60)
[2017-09-14] MEDS: *HR* Heparin 5,000 UNIT/ML VIAL SQ SCH (06:04)
[2017-09-14] MEDS: Loratadine 10 MG TABLET PO SCH (07:46)
[2017-09-14] MEDS: Aspirin Enteric Coated 81 MG Tablet PO SCH (07:46)
[2017-09-14] MEDS: Insulin LISPRO 300 UNITS/3 ML VIAL SQ SCH ×2 (07:47→11:58)
[2017-09-14] MEDS ORDERED: levoFLOXacin 750 MG TABLET PO SCH (09:00)
[2017-09-14] MEDS ORDERED: Furosemide 40 MG TABLET PO SCH (09:00)
[2017-09-14 11:47] VITALS: BP 110/54
--- NOTE | 2017-09-14 14:11 | Discharge Summary ---
- NOTES TO OUTPATIENT PROVIDER Notes to Outpatient Provider: Follow up with PCP in 2-3 days after discharge. Date of Encounter: 09/14/17 Time of Encounter: 14:09 - Discharge Diagnosis (1) Respiratory failure with hypoxia Priority: Primary Status: Resolved Qualifiers: Chronicity: acute on chronic Qualified Code(s): J96.21 - Acute and chronic respiratory failure with hypoxia (2) Pneumonia Priority: Secondary Status: Acute Qualifiers: Pneumonia type: due to unspecified organism Laterality: bilateral Lung location: unspecified part of lung Qualified Code(s): J18.9 - Pneumonia, unspecified organism (3) Pulmonary edema Priority: Secondary Status: Acute Qualifiers: Chronicity: acute Qualified Code(s): J81.0 - Acute pulmonary edema (4) COPD (chronic obstructive pulmonary disease) Priority: Secondary Status: Chronic Qualifiers: COPD type: unspecified COPD Qualified Code(s): J44.9 - Chronic obstructive pulmonary disease, unspecified (5) Diabetes mellitus Priority: Secondary Status: Chronic Qualifiers: Diabetes mellitus type: type 2 Diabetes mellitus terminal superintendent insulin use: without group home use Diabetes mellitus complication status: without complication Qualified Code(s): E11.9 - Type 2 diabetes mellitus without complications (6) Dementia Priority: Secondary Status: Chronic Qualifiers: Dementia type: unspecified type Dementia behavioral disturbance: without behavioral disturbance Qualified Code(s): F03.90 - Unspecified dementia without behavioral disturbance (7) Morbid obesity Priority: Secondary Status: Chronic (8) DVT prophylaxis Priority: Secondary Status: Acute Hospital course: Mr. Valera is a 77 year old male admitted for acute respiratory failure with hypoxia likely secondary to pneumonia and pulmonary edema. He was admitted to step down unit with telemetry. He was placed on BiPAP initially, then weaned to NC. He was started on nebulizer treatments with RT consult. He was started on IV levaquin, which was later transitioned to PO levaquin. He was started on IV lasix, which was later transitioned to home PO lasix. His respiratory status improved daily. Patient is now back to his home 2L NC. He is in no respiratory distress. He wants to go home. He will complete 3 more days of PO levaquin at home. He will follow up with PCP in 2-3 days after discharge. Patient has met maximum benefit of this hospitalization and will be discharged home with home health in stable condition. Discharge discussed with: patient, nurse, other (Pharmacist) - Time Spent with Patient Total time spent providing and/or coordinating discharge services: Greater than 30 minutes - Discharge Medications Prescriptions: levoFLOXacin [Levaquin] 750 mg PO DAILY 3 Days #3 tablet Home Medications: Aspirin Enteric Coated [Aspirin EC] 81 mg PO DAILY 01/10/15 [History] Lisinopril [Zestril] 40 mg PO DAILY 01/10/15 [History] Atorvastatin [Lipitor] 20 mg PO HS 05/14/16 [History] Cyanocobalamin (Vitamin B-12) [Vitamin B-12] 1,000 mcg SL DAILY 05/14/16 [ History] Donepezil [Aricept] 10 mg PO HS 05/14/16 [History] Ergocalciferol (VITAMIN D2) [Vitamin D2] 50,000 unit PO QMONTH 05/14/16 [History ] Levothyroxine [Synthroid] 50 mcg PO 0630 05/14/16 [History] Linagliptin [Tradjenta] 5 mg PO DAILY 05/14/16 [History] D-Methorphan Hb/P-Epd HCl/Bpm [Bromfed Dm Cough Syrup] 10 ml PO 3-4XD PRN #120 syrup 07/30/16 [Rx] Furosemide [Lasix] 40 mg PO DAILY 07/30/16 [History] Glimepiride [Amaryl] 4 mg PO DAILY 09/11/17 [History] Memantine HCl [Namenda Xr] 28 mg PO DAILY 09/11/17 [History] Potassium Chloride [Klor-Con 10] 10 meq PO BID 09/11/17 [History] levoFLOXacin [Levaquin] 750 mg PO DAILY 3 Days #3 tablet 09/14/17 [Rx] Allergies/Adverse Reactions: 3 Allergy/AdvReac Type Severity Reaction Status Date / Time No Known Allergies Allergy Verified 09/01/17 17:18 Date of admission: 09/10/17 18:01 Primary care physician: Pranav Abdullahi CNP Consults: 09/11/17 16:11 Consult to Respiratory Therapy [CONS] Stat Reason for Consult: Wean off BiPAP Call Completed: No 09/13/17 14:09 Consult to Auto Former Machine Operator [CONS] Stat Reason for SW Consult: D/C planning. Placement needs? Discharging clinician: Yamil Coronado Anticipated date of discharge: 09/14/17 - Constitutional Vitals: Temp Pulse Resp BP Pulse Ox 97.5 F L 68 18 110/54 93 09/14/17 11:44 09/14/17 11:44 09/14/17 11:44 09/14/17 11:44 09/14/17 11:44 General appearance: Present: cooperative, A&O X 3, morbidly obese, pleasant, no acute distress, answers questions appropriately - Respiratory Respiratory exam: Present: CTAB. Absent: accessory muscle use, rales, rhonchi, wheezes Additional comments: Normal WOB - Cardiovascular Cardiovascular exam: Present: RRR, +S1, +S2. Absent: diastolic murmur, gallop, rubs, systolic murmur Additional comments: No BLE edema - GI/Abdominal GI/Abdominal exam: Present: normal bowel sounds, soft. Absent: distended, hepatomegaly, mass, splenomegaly, tenderness - Psychiatric Psychiatric exam: Present: normal affect, normal mood. Absent: agitated, anxious, depressed - Skin Skin exam: Present: dry, intact, warm. Absent: cyanosis, rash - Patient Status Disposition: Home Health Service Condition: Good Overall status at discharge: patient is progressing back to baseline - Discharge Instructions Follow Up With: Pranav Abdullahi TELEGRAPHIC TYPEWRITER MECHANIC [Primary Care Provider] - (Family will have to call and make patients appointment per Dr. Garcia Office) Additional Instructions: Follow up with PCP in 2-3 days after discharge. - Diet and Activity Activity: resume usual activities as tolerated Diet: diabetic diet, low fat, low cholesterol, low salt diet, other (Cardiac Diet)
--- NOTE | 2017-09-14 14:22 | Physician Discharge Referral ---
Home Health/Hosp Referral Info Transfer to: Home Health Provider in Charge Post Discharge: PCP - Diagnosis (1) Respiratory failure with hypoxia Priority: Primary Status: Resolved (2) Pneumonia Priority: Secondary Status: Acute (3) Pulmonary edema Priority: Secondary Status: Acute (4) COPD (chronic obstructive pulmonary disease) Priority: Secondary Status: Chronic (5) Diabetes mellitus Priority: Secondary Status: Chronic (6) Dementia Priority: Secondary Status: Chronic (7) Morbid obesity Priority: Secondary Status: Chronic (8) DVT prophylaxis Priority: Secondary Status: Acute - Respiratory Orders Oxygen / L per min (2L NC) Smoking Cessation: Smoking cessation has been advised. For more information, call the [place] Tobacco Quit Line at 3-557-WZMZ-NOW. - Diet/Nutrition Diet/Nutrition Orders: No Added Salt (FLO), Cardiac, No Concentrated Sweets - Services Needed Following services are medically necessary services: Nursing, Physical Therapy, Occupational Therapy - Transfer Medications Prescriptions: levoFLOXacin [Levaquin] 750 mg PO DAILY 3 Days #3 tablet Home Medications: Aspirin Enteric Coated [Aspirin EC] 81 mg PO DAILY 01/10/15 [History] Lisinopril [Zestril] 40 mg PO DAILY 01/10/15 [History] Atorvastatin [Lipitor] 20 mg PO HS 05/14/16 [History] Cyanocobalamin (Vitamin B-12) [Vitamin B-12] 1,000 mcg SL DAILY 05/14/16 [ History] Donepezil [Aricept] 10 mg PO HS 05/14/16 [History] Ergocalciferol (VITAMIN D2) [Vitamin D2] 50,000 unit PO QMONTH 05/14/16 [History ] Levothyroxine [Synthroid] 50 mcg PO 0630 05/14/16 [History] Linagliptin [Tradjenta] 5 mg PO DAILY 05/14/16 [History] D-Methorphan Hb/P-Epd HCl/Bpm [Bromfed Dm Cough Syrup] 10 ml PO 3-4XD PRN #120 syrup 07/30/16 [Rx] Furosemide [Lasix] 40 mg PO DAILY 07/30/16 [History] Glimepiride [Amaryl] 4 mg PO DAILY 09/11/17 [History] Memantine HCl [Namenda Xr] 28 mg PO DAILY 09/11/17 [History] Potassium Chloride [Klor-Con 10] 10 meq PO BID 09/11/17 [History] levoFLOXacin [Levaquin] 750 mg PO DAILY 3 Days #3 tablet 09/14/17 [Rx] Allergies/Adverse Reactions: 3 Allergy/AdvReac Type Severity Reaction Status Date / Time No Known Allergies Allergy Verified 09/01/17 17:18 Certification: Further, I certify that my clinical findings support that this patient is homebound (i.e. absences from home require considerable and taxing effort and are for medical reasons or moravian services or infrequently or short duration when for other reasons) because: respiratory failure, pneumonia, COPD, DM Type II, dementia, and morbid obesity. Homebound Reason: Patient requires assistance of a person or device to safely leave home, Leaving home requires considerable and taxing effort due to condition, Severity of cardiac or pulmonary status limits activity tolerance Attestation: My signature below is to certify that this patient is under my care and that I, or nurse practitioner, or a physician's therapy administrative assistant working with me, has a face-to -face encounter with this patient.
== END 2017-09-14 15:01 | disposition home health service (06) | DRG 193 ==
LOC: EMEROO 14:00 → 2NNU 14:00
PROVIDERS: ADMIT Hospitalist; ATTEND Hospitalist